=== PATIENT | female | born 1980 | race Caucasian/White ===

== ENCOUNTER 2016-09-16 19:01 | Emergency (ER) | payer OTHER ==
--- NOTE | 2016-09-16 21:06 | EDDOCDS ---
Physician Documentation [facility] Name: Raegan Corrigan Age: 36 yrs Sex: Female : 1980 Arrival Date: 09/16/2016 Time: 19:01 Bed TR7 Private MD: Other - Complete Info On Cds Disposition: 09/16/16 20:56 Discharged to Home/Self Care. Impression: Acute serous otitis media, bilateral, Dizziness and giddiness. - Condition is Stable. - Discharge Instructions: Dizziness, Otitis Media, Adult. - Medication Reconciliation, Local Pharmacy Hours, Work Release Form - 4 day form. - Follow up: Private Physician; When: Call to arrange an appointment; Reason: Recheck today's complaints, Continuance of care. Follow up: Negro Díaz; When: 1 week; Reason: Recheck today's complaints, Continuance of care. - Problem is new. - Symptoms are unchanged. Historical: - Allergies: GUAIFENESIN (Hives); - Home Meds: 1. Singulair 10 mg Oral tab 1 tab once daily 2. Zyrtec 10 mg Oral tab 1 tab once daily 3. clindamycin HCl 300 mg Oral cap 1 cap every 6 hours (Last dose: 09/16/2016) 4. Percocet 5-325 mg Oral tab 1 tab every 8 hours (Last dose: 09/16/2016 11:00) - PMHx: Asthma; Seasonal Allergies; - PSHx: Hysterectomy; - Social history: Smoking status: Patient states former smoker of tobacco. No barriers to communication noted, The patient speaks fluent Divehi. - Family history: Not pertinent. - : The pt / caregiver states he / she is not on anticoagulants. Home medication list is obtained from the patient. - Exposure Risk Screening:: None identified. 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 1 in. (154.94 cm) (R); Pain 6/10; 19:03 Body Mass Index 43.46 (104.33 kg, 154.94 cm) gr2 Signatures: Taylor Chang,RN RN cjh Bert Ly PA PA mo1 Bert Flores,WILL RN mb9 MTDD
--- NOTE | 2016-09-16 21:06 | EDDOCDS ---
Nurse's Notes [facility] Name: Raegan Corrigan Age: 36 yrs Sex: Female : 1980 Arrival Date: 09/16/2016 Time: 19:01 Bed TR7 Private MD: Other - Complete Info On Cds Diagnosis: Acute serous otitis media, bilateral;Dizziness and giddiness Presentation: 09/16 19:09 Presenting complaint: Patient states: "I've been having headaches and ear pain and mb9 dizziness for a week. I was seen at [facility] on Wednesday and they diagnosed me with sinusitis and mastoiditis. They gave me one dose of IV antibiotics and sent me home with oral antibiotics and I'm not feeling better". Adult Sepsis Screening: The patient does not have new or worsening altered mentation. Patient's respiratory rate is less than 22. Systolic blood pressure is greater than 100. Patient has a qSOFA score of 0- Negative Sepsis Screen. Suicide/Homicide risk assessment- the patient denies having any suicidal and/or homicidal ideations and does not present with any other emotional, behavioral or mental health complaints. Status: The patient is a dependent. Transition of care: patient was not received from another setting of care. 19:09 Acuity: GERI Level 4 mb9 19:09 Method Of Arrival: Walkin/Carried/Asstd mb9 Triage Assessment: 19:15 General: Appears uncomfortable, Behavior is appropriate for age, cooperative. Pain: mb9 Location: right ear and left ear Pain currently is 7 out of 10 on a pain scale. Pt Declines HIV testing. EENT: Reports pain in left ear and right ear Pain is 7 out of 10 on a pain scale. Respiratory: Airway is patent Respiratory effort is even, unlabored. 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 Singulair 10 mg Oral tab 1 tab once daily 2. Zyrtec 10 mg Oral tab 1 tab once daily 3. clindamycin HCl 300 mg Oral cap 1 cap every 6 hours (Last dose: 09/16/2016) 4. Percocet 5-325 mg Oral tab 1 tab every 8 hours (Last dose: 09/16/2016 11:00) - PMHx: Asthma; Seasonal Allergies; - PSHx: Hysterectomy; - Social history: Smoking status: Patient states former smoker of tobacco. No barriers to communication noted, The patient speaks fluent Swiss. - Family history: Not pertinent. - : The pt / caregiver states he / she is not on anticoagulants. Home medication list is obtained from the patient. - Exposure Risk Screening:: None identified. Screenin:00 Screening information is obtained from the patient. Fall risk: No risks identified. cj Assistance ADL's: requires no assistance with activities of daily living. Abuse/DV Screen: The patient / caregiver reports he/she is: not in a situation that causes fear, pain or injury. Nutritional screening: No deficits noted. Advance Directives: There is no active DNR order. home support is adequate. Assessment: 21:00 General: Appears in no apparent distress, comfortable, Behavior is appropriate for age, cjh assessed by PA, denies further needs at this time. Reviewed discharge instructions, encouraged and answered questions, declines offer of further assistance. Neurological: Level of Consciousness is awake, alert, Oriented to person, place, time. Respiratory: Airway is patent Respiratory effort is even, unlabored, Respiratory pattern is regular, symmetrical. Derm: Skin is pink, warm & dry. Vital Signs: 19:03 BP 148 / 73; Pulse 88; Resp 18 S; Temp 97.1(O); Pulse Ox 99% on R/A; Weight 104.33 kg gr2 (R); Height 5 ft. 1 in. (154.94 cm) (R); Pain 6/10; 19:03 Body Mass Index 43.46 (104.33 kg, 154.94 cm) gr2 Vitals: 19:03 Log In Time: September 16, 2016 at 19:03. gr2 ED Course: 19:02 Patient visited by Jaiden Zepeda. gr2 19:02 Patient moved to Waiting gr2 19:03 Other - Complete Info On Cds is Private Physician. gr2 19:04 Patient visited by Jaiden Zepeda. gr2 19:04 Patient moved to Pre RCE gr2 19:13 Triage Initiated mb9 19:45 Patient moved to Triage 2 [facility] 20:01 Bert Ly PA is PHCP. mo1 20:01 Nima Barrios DO is Attending Physician. mo1 20:18 Patient visited by Bert Ly PA. mo1 20:56 Negro Díaz is Referral Physician. mo1 21:00 The patient / caregiver is instructed regarding the plan of care and ED course. [facility] 21:00 No IV's were initiated during this patient's visit. No procedures done that require [facility] assistance. 21:01 Patient moved to TR7 rs6 Order Results: There are currently no results for this order. Outcome: 20:56 Discharge ordered by Provider. mo1 21:00 Discharge Assessment: Patient awake, alert and oriented x 3. No cognitive and/or [facility] functional deficits noted. Patient verbalized understanding of disposition instructions. patient administered narcotics - no. The following High Risk Discharge criteria are identified: None. Discharged to home ambulatory. Condition: good Condition: stable. Discharge instructions given to patient, Instructed on discharge instructions, follow up and referral plans. Demonstrated understanding of instructions, Pt was receptive of discharge instructions/ teaching. No special radiology studies were completed. Property :Personal belongings accompany Pt. 21:05 Patient left the ED. [facility] Signatures: Taylor ChangRN RN [facility] Jaiden Zepeda gr2 Bert Ly PA PA mo1 Bert Flores RN RN mb9 Harini Purivs, SCREEN MAKING SUPERVISOR SCREEN MAKING SUPERVISOR rs6 [facility]
--- NOTE | 2016-09-18 22:06 | EDDOCDS ---
Physician Documentation [facility] Name: Raegan Corrigan Age: 36 yrs Sex: Female : 1980 Arrival Date: 09/16/2016 Time: 19:01 Bed TR7 Private MD: Other - Complete Info On Cds Disposition: 09/16/16 20:56 Discharged to Home/Self Care. Impression: Acute serous otitis media, bilateral, Dizziness and giddiness. - Condition is Stable. - Discharge Instructions: Dizziness, Otitis Media, Adult. - Medication Reconciliation, Local Pharmacy Hours, Work Release Form - 4 day form. - Follow up: Private Physician; When: Call to arrange an appointment; Reason: Recheck today's complaints, Continuance of care. Follow up: Negro Díaz; When: 1 week; Reason: Recheck today's complaints, Continuance of care. - Problem is new. - Symptoms are unchanged. Historical: - Allergies: GUAIFENESIN (Hives); - Home Meds: 1. Singulair 10 mg Oral tab 1 tab once daily 2. Zyrtec 10 mg Oral tab 1 tab once daily 3. clindamycin HCl 300 mg Oral cap 1 cap every 6 hours (Last dose: 09/16/2016) 4. Percocet 5-325 mg Oral tab 1 tab every 8 hours (Last dose: 09/16/2016 11:00) - PMHx: Asthma; Seasonal Allergies; - PSHx: Hysterectomy; - Social history: Smoking status: Patient states former smoker of tobacco. No barriers to communication noted, The patient speaks fluent Indonesian. - Family history: Not pertinent. - : The pt / caregiver states he / she is not on anticoagulants. Home medication list is obtained from the patient. - Exposure Risk Screening:: None identified. 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 1 in. (154.94 cm) (R); Pain 6/10; 19:03 Body Mass Index 43.46 (104.33 kg, 154.94 cm) gr2 MDM: 21:28 [facility] Payment Agreement was scanned into [employer] and attached to record. gjb : Financial registration complete. gjb 09/17 08:56 T-Sheet-- Draft Copy was scanned into [employer] and attached to record. gb Signatures: Petra Dumont, Reg Reg gb Taylor ChangRN RN cj Bert Ly PA PA mo1 Bert Flores RN RN mb9 Sneha Muller [facility] The chart was reviewed and I authenticate all verbal orders and agree with the evaluation and treatment provided.Attachments: 09/16 21:28 [facility] Payment Agreement gjb 09/17 08:56 T-Sheet-- Draft Copy gb Chart Complete MTDD
--- NOTE | 2016-09-18 22:06 | EDDOCDS ---
Physician Documentation [facility] Name: Raegan Corrigan Age: 36 yrs Sex: Female : 1980 Arrival Date: 09/16/2016 Time: 19:01 Bed TR7 Private MD: Other - Complete Info On Cds Disposition: 09/16/16 20:56 Discharged to Home/Self Care. Impression: Acute serous otitis media, bilateral, Dizziness and giddiness. - Condition is Stable. - Discharge Instructions: Dizziness, Otitis Media, Adult. - Medication Reconciliation, Local Pharmacy Hours, Work Release Form - 4 day form. - Follow up: Private Physician; When: Call to arrange an appointment; Reason: Recheck today's complaints, Continuance of care. Follow up: Negro Díaz; When: 1 week; Reason: Recheck today's complaints, Continuance of care. - Problem is new. - Symptoms are unchanged. Historical: - Allergies: GUAIFENESIN (Hives); - Home Meds: 1. Singulair 10 mg Oral tab 1 tab once daily 2. Zyrtec 10 mg Oral tab 1 tab once daily 3. clindamycin HCl 300 mg Oral cap 1 cap every 6 hours (Last dose: 09/16/2016) 4. Percocet 5-325 mg Oral tab 1 tab every 8 hours (Last dose: 09/16/2016 11:00) - PMHx: Asthma; Seasonal Allergies; - PSHx: Hysterectomy; - Social history: Smoking status: Patient states former smoker of tobacco. No barriers to communication noted, The patient speaks fluent Yakut. - Family history: Not pertinent. - : The pt / caregiver states he / she is not on anticoagulants. Home medication list is obtained from the patient. - Exposure Risk Screening:: None identified. 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 1 in. (154.94 cm) (R); Pain 6/10; 19:03 Body Mass Index 43.46 (104.33 kg, 154.94 cm) gr2 MDM: 21:28 [facility] Payment Agreement was scanned into [employer] and attached to record. gjb : Financial registration complete. gjb 09/17 08:56 T-Sheet-- Draft Copy was scanned into [employer] and attached to record. gb Signatures: Petra Dumont, Reg Reg gb Taylor ChangRN RN cj Bert Ly PA PA mo1 Bert Flores RN RN mb9 Sneha Muller [facility] The chart was reviewed and I authenticate all verbal orders and agree with the evaluation and treatment provided.Attachments: 09/16 21:28 [facility] [place] [facility] Payment Agreement gjb 09/17 08:56 T-Sheet-- Draft Copy gb Chart Complete MTDD
--- NOTE | 2016-09-18 22:06 | EDDOCDS ---
Nurse's Notes [facility] Name: Raegan Corrigan Age: 36 yrs Sex: Female : 1980 Arrival Date: 09/16/2016 Time: 19:01 Bed TR7 Private MD: Other - Complete Info On Cds Diagnosis: Acute serous otitis media, bilateral;Dizziness and giddiness Presentation: 09/16 19:09 Presenting complaint: Patient states: "I've been having headaches and ear pain and mb9 dizziness for a week. I was seen at [facility] on Wednesday and they diagnosed me with sinusitis and mastoiditis. They gave me one dose of IV antibiotics and sent me home with oral antibiotics and I'm not feeling better". Adult Sepsis Screening: The patient does not have new or worsening altered mentation. Patient's respiratory rate is less than 22. Systolic blood pressure is greater than 100. Patient has a qSOFA score of 0- Negative Sepsis Screen. Suicide/Homicide risk assessment- the patient denies having any suicidal and/or homicidal ideations and does not present with any other emotional, behavioral or mental health complaints. Status: The patient is a dependent. Transition of care: patient was not received from another setting of care. 19:09 Acuity: GERI Level 4 mb9 19:09 Method Of Arrival: Walkin/Carried/Asstd mb9 Triage Assessment: 19:15 General: Appears uncomfortable, Behavior is appropriate for age, cooperative. Pain: mb9 Location: right ear and left ear Pain currently is 7 out of 10 on a pain scale. Pt Declines HIV testing. EENT: Reports pain in left ear and right ear Pain is 7 out of 10 on a pain scale. Respiratory: Airway is patent Respiratory effort is even, unlabored. 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 Singulair 10 mg Oral tab 1 tab once daily 2. Zyrtec 10 mg Oral tab 1 tab once daily 3. clindamycin HCl 300 mg Oral cap 1 cap every 6 hours (Last dose: 09/16/2016) 4. Percocet 5-325 mg Oral tab 1 tab every 8 hours (Last dose: 09/16/2016 11:00) - PMHx: Asthma; Seasonal Allergies; - PSHx: Hysterectomy; - Social history: Smoking status: Patient states former smoker of tobacco. No barriers to communication noted, The patient speaks fluent Tanzanian. - Family history: Not pertinent. - : The pt / caregiver states he / she is not on anticoagulants. Home medication list is obtained from the patient. - Exposure Risk Screening:: None identified. Screenin:00 Screening information is obtained from the patient. Fall risk: No risks identified. cj Assistance ADL's: requires no assistance with activities of daily living. Abuse/DV Screen: The patient / caregiver reports he/she is: not in a situation that causes fear, pain or injury. Nutritional screening: No deficits noted. Advance Directives: There is no active DNR order. home support is adequate. Assessment: 21:00 General: Appears in no apparent distress, comfortable, Behavior is appropriate for age, cjh assessed by PA, denies further needs at this time. Reviewed discharge instructions, encouraged and answered questions, declines offer of further assistance. Neurological: Level of Consciousness is awake, alert, Oriented to person, place, time. Respiratory: Airway is patent Respiratory effort is even, unlabored, Respiratory pattern is regular, symmetrical. Derm: Skin is pink, warm & dry. Vital Signs: 19:03 BP 148 / 73; Pulse 88; Resp 18 S; Temp 97.1(O); Pulse Ox 99% on R/A; Weight 104.33 kg gr2 (R); Height 5 ft. 1 in. (154.94 cm) (R); Pain 6/10; 19:03 Body Mass Index 43.46 (104.33 kg, 154.94 cm) gr2 Vitals: 19:03 Log In Time: September 16, 2016 at 19:03. gr2 ED Course: 19:02 Patient visited by Jaiden Zepeda. gr2 19:02 Patient moved to Waiting gr2 19:03 Other - Complete Info On Cds is Private Physician. gr2 19:04 Patient visited by Jaiden Zepeda. gr2 19:04 Patient moved to Pre RCE gr2 19:13 Triage Initiated mb9 19:45 Patient moved to Triage 2 [facility] 20:01 Bert Ly PA is PHCP. mo1 20:01 Nima Barrios DO is Attending Physician. mo1 20:18 Patient visited by Bert Ly PA. mo1 20:56 Negro Díaz is Referral Physician. mo1 21:00 The patient / caregiver is instructed regarding the plan of care and ED course. [facility] 21:00 No IV's were initiated during this patient's visit. No procedures done that require [facility] assistance. 21:01 Patient moved to TR7 rs6 21:28 [facility] Payment Agreement was scanned into [employer] and attached to record. jim 09/17 08:56 T-Sheet-- Draft Copy was scanned into [employer] and attached to record. gb Order Results: There are currently no results for this order. Outcome: 09/16 20:56 Discharge ordered by Provider. mo1 21:00 Discharge Assessment: Patient awake, alert and oriented x 3. No cognitive and/or [facility] functional deficits noted. Patient verbalized understanding of disposition instructions. patient administered narcotics - no. The following High Risk Discharge criteria are identified: None. Discharged to home ambulatory. Condition: good Condition: stable. Discharge instructions given to patient, Instructed on discharge instructions, follow up and referral plans. Demonstrated understanding of instructions, Pt was receptive of discharge instructions/ teaching. No special radiology studies were completed. Property :Personal belongings accompany Pt. 21:05 Patient left the ED. [facility] Signatures: Petra Dumont, Satya Reg gb Taylor Chang,WILL RN [facility] Jaiden Zepeda gr2 Bert Ly PA PA mo1 Bert FloresRN RN mb9 Harini Purvis, RITA SUPERVISOR ASSEMBLY ROOM [facility] Sneha Muller Chart Complete MTDD
== END 2016-09-16 21:05 | disposition home or self-care (01) ==
LOC: M ED 19:01
DX: H65.03 Acute serous otitis media, bilateral (principal); H70.003 Acute mastoiditis without complications, bilateral; R51 Headache; R42 Dizziness and giddiness; J45.909 Unspecified asthma, uncomplicated; Z79.899 Other long term (current) drug therapy; Z79.2 Long term (current) use of antibiotics; Z88.8 Allergy status to other drugs, medicaments and biological substances

== ENCOUNTER → 2016-12-26 | Outpatient (REF) | payer OTHER ==
[2016-12-27 10:32] LABS: ALBUMIN 3.9 GM/DL (3.2-5.2); ALBUMIN/GLOBULIN RATIO 1.11 (1.00-1.93); ALKALINE PHOSPHATASE 92 U/L (45-117); ALT/SGPT 67 U/L (12-78); ANION GAP 7 MEQ/L (8-16); AST/SGOT 60 U/L (15-37); BILIRUBIN,TOTAL 0.6 MG/DL (0.2-1.0); BLOOD UREA NITROGEN 13 MG/DL (7-18); CALCIUM LEVEL 9.3 MG/DL (8.5-10.1); CARBON DIOXIDE LEVEL 29 MEQ/L (21-32); CHLORIDE LEVEL 101 MEQ/L (98-107); CREATININE FOR GFR 0.88 MG/DL (0.55-1.02); GLOMERULAR FILTRATION RATE > 60.0 (>60); GLUCOSE, FASTING 279 MG/DL (70-105); POTASSIUM SERUM 4.2 MEQ/L (3.5-5.1); SODIUM LEVEL 137 MEQ/L (136-145); TOTAL PROTEIN 7.4 GM/DL (6.4-8.2)
== END ==
LOC: M SFHCLERA 17:31
PROVIDERS: ATTEND Nurse Practitioner Family
DX: R35.0 Frequency of micturition (principal); R81 Glycosuria
CPT/HCPCS: 80053; 83036; 87088; G0463